=== PATIENT | female | born 1985 | race Two or more races ===

== ENCOUNTER 2023-04-19 23:05 | Emergency (ER) | payer MEDICAID, OTHER ==
[~2023-04-19] VITALS: Ht 154.9 cm; Wt 79.0 kg
[2023-04-20] MEDS ORDERED: Surgicel PA 2X3 INCH TOP ONE (01:00)
[2023-04-20] MEDS ORDERED: HYDR-4902 PO (02:07)
[2023-04-20] MEDS ORDERED: HYDROcodone-ACET 5/325MG TAB PO ONE (02:15)
[2023-04-20 03:50] VITALS: BP 114/67; PULSE 79; RESP 16; TEMP 98.6; O2SAT 100
== END 2023-04-20 03:50 | disposition home or self-care (01) ==
LOC: ER 23:09
DX: K06.8 Other specified disorders of gingiva and edentulous alveolar ridge (principal); Z88.0 Allergy status to penicillin